=== PATIENT | female | born 1985 | race Caucasian/White ===

== ENCOUNTER 2018-05-12 17:35 | Emergency (ER) | payer MEDICAID ==
[~2018-05-12] VITALS: Ht 162.6 cm; Wt 84.0 kg
[~2018-05-12 17:35] MED LIST: CITA20TA19 PO; DIVA500T3 PO; HYDR-523 PO; LEVO1TAB24 PO; ONDA4TAB21 SL; RISP1 PO
[2018-05-12] MEDS ORDERED: SODIUM CHLORIDE 0.9% 1,000 ML IV ONE (18:05)
[2018-05-12] MEDS ORDERED: KETOROLAC 30MG/ML VIAL IV STA (18:05)
[2018-05-12] MEDS ORDERED: ONDANSETRON HCL 4MG/2ML VIAL IV STA (18:05)
[2018-05-12 18:33] LABS: BASOPHILS % 1.3 % (0.0-2.0); HEMATOCRIT. 36.9 % (36.0-48.0); HEMOGLOBIN. 12.4 g/dL (12.0-16.0); LYMPHOCYTES % 28.1 % (20.0-50.0); MEAN CORPUSCULAR HEMOGLOBIN 30.5 pg (28.0-32.0); MEAN CORPUSCULAR VOLUME 90.9 fL (81.0-99.0); MEAN PLATELET VOLUME 9.9 fl (7.4-10.4); MONOCYTES % 8.4 % (2.0-8.0); NEUTROPHILS % 60.2 % (40.0-76.0); PLATELET 240 x1000/uL (130-400); RED BLOOD CELL COUNT 4.06 mill/uL (4.2-5.4)
[2018-05-12 18:39] LABS: CHLORIDE 103 mEq/L (98-107)
[2018-05-12 18:40] LABS: INR 1.1; PROTHROMBIN TIME 11.4 sec (9.4-11.6)
[2018-05-12 18:41] LABS: HCG SCREEN NEGATIVE
[2018-05-12] MEDS ORDERED: MORPHINE SULFATE 4 MG/ML CPJ (NOT FOR IM USE) IV ONE ×2 (19:15→20:00)
[2018-05-12] MEDS ORDERED: POTASSIUM CHLORIDE 20MEQ TABLET SR PO ONE (19:15)
[2018-05-12 19:28] LABS: CLARITY URINE CLOUDY (CLEAR); COLOR URINE DARK YELLOW (YELLOW); KETONES URINE 2+ (NEGATIVE); LEUKOCYTE ESTERASE URINE NEGATIVE (NEGATIVE); NITRITE URINE NEGATIVE (NEGATIVE); OCCULT BLOOD URINE TRACE (NEGATIVE); PH URINE 5.5 (4.5-8.0); PROTEIN URINE 1+ (NEGATIVE); SPECIFIC GRAVITY URINE 1.031 (1.005-1.030)
[2018-05-12 19:37] LABS: *AMPHETAMINES SCREEN URINE NEGATIVE (NEGATIVE); *BARBITURATES SCREEN URINE NEGATIVE (NEGATIVE); *BENZODIAZEPINES SCREEN URINE NEGATIVE (NEGATIVE); *COCAINE SCREEN URINE NEGATIVE (NEGATIVE)
[2018-05-12 19:38] LABS: METHADONE URINE SCREEN NEGATIVE (NEGATIVE); PHENCYCLIDINE URINE SCREEN NEGATIVE (NEGATIVE)
[2018-05-12 19:47] LABS: CANNABINOID URINE SCREEN PRESUMTIVE POSITIVE (NEGATIVE); OPIATES URINE SCREEN PRESUMTIVE POSITIVE (NEGATIVE)
[2018-05-12] MEDS ORDERED: ONDANSETRON HCL 4MG/2ML VIAL IV ONE (20:00)
[2018-05-12 21:50] VITALS: BP 112/58
[2018-05-12] MEDS ORDERED: ACETAMINOPHEN 325MG TABLET PO ONE (22:15)
== END 2018-05-12 22:30 | disposition home or self-care (01) ==
LOC: ER 17:35
DX: R10.30 Lower abdominal pain, unspecified (principal); R11.2 Nausea with vomiting, unspecified; R19.7 Diarrhea, unspecified; R03.0 Elevated blood-pressure reading, without diagnosis of hypertension; Z98.890 Other specified postprocedural states
CPT/HCPCS: 36415; 74176; 80053; 80305; 81003; 81025; 83690; 84703; 85025; 85610; 96361; 96374; 96375; 96376; 99285; J1885; J2270; J2405; J7030; Z7610

== ENCOUNTER 2019-04-23 03:36 | Emergency (ER) | payer MEDICAID ==
[~2019-04-23] VITALS: Ht 162.6 cm; Wt 78.0 kg
[2019-04-23] MEDS ORDERED: ONDANSETRON HCL 4MG/2ML INJ IV ONE ×3 (05:30→10:00)
[2019-04-23] MEDS ORDERED: KETOROLAC 15MG/ML VIAL IV NR (05:30)
[2019-04-23] MEDS ORDERED: KETOROLAC 30MG/ML VIAL IV ONE (05:30)
[2019-04-23 05:33] LABS: BASOPHILS % 1.1 % (0.0-2.0); EOSINOPHILS % 3.4 % (0.0-5.0); HEMATOCRIT. 40.1 % (36.0-48.0); HEMOGLOBIN. 13.6 g/dL (12.0-16.0); LYMPHOCYTES % 26.7 % (20.0-50.0); MEAN CORPUSCULAR HEMOGLOBIN 31.5 pg (28.0-32.0); MEAN PLATELET VOLUME 9.5 fl (7.4-10.4); MONOCYTES % 6.7 % (2.0-8.0); NEUTROPHILS % 62.1 % (40.0-76.0); PLATELET 272 x1000/uL (130-400); RED BLOOD CELL COUNT 4.31 mill/uL (4.2-5.4); RED CELL DISTRIBUTION WIDTH 13.7 % (11.6-14.6)
[2019-04-23 05:36] LABS: CHLORIDE 110 mEq/L (98-107)
[2019-04-23 05:49] LABS: CLARITY URINE CLOUDY (CLEAR); COLOR URINE YELLOW (YELLOW); KETONES URINE TRACE (NEGATIVE); LEUKOCYTE ESTERASE URINE NEGATIVE (NEGATIVE); NITRITE URINE NEGATIVE (NEGATIVE); OCCULT BLOOD URINE NEGATIVE (NEGATIVE); PROTEIN URINE NEGATIVE (NEGATIVE); SPECIFIC GRAVITY URINE 1.023 (1.005-1.030); UROBILINOGEN URINE 0.2 E.U./dL (0.2-1.0)
[2019-04-23] MEDS ORDERED: MORPHINE SULFATE 4 MG/ML CPJ (NOT FOR IM USE) IV ONE (06:15)
[2019-04-23] MEDS ORDERED: HALOPERIDOL LACTATE 5MG/ML VIAL IM ONE (08:15)
[2019-04-23 10:05] VITALS: BP 125/83
== END 2019-04-23 10:08 | disposition home or self-care (01) ==
LOC: ER 03:36
DX: D25.9 Leiomyoma of uterus, unspecified (principal); R10.84 Generalized abdominal pain; F12.10 Cannabis abuse, uncomplicated; Z98.890 Other specified postprocedural states; Z79.899 Other long term (current) drug therapy; Z88.6 Allergy status to analgesic agent
CPT/HCPCS: 36415; 74176; 76830; 76856; 80053; 81003; 81025; 85025; 96374; 96375; 96376; 99284; J1630; J1885; J2270; J2405; Z7610

== ENCOUNTER 2019-04-23 10:18 | Emergency (ER) | payer MEDICAID ==
[~2019-04-23] VITALS: Ht 167.6 cm; Wt 80.0 kg
[2019-04-23 10:31] VITALS: BP 165/84
[2019-04-23] MEDS ORDERED: HALOPERIDOL LACTATE 5MG/ML VIAL IM ONE (11:00)
== END 2019-04-23 11:28 | disposition home or self-care (01) ==
LOC: ER 10:32
DX: R10.84 Generalized abdominal pain (principal); R11.2 Nausea with vomiting, unspecified; F12.10 Cannabis abuse, uncomplicated; Z79.899 Other long term (current) drug therapy; Z98.890 Other specified postprocedural states; Z88.6 Allergy status to analgesic agent
CPT/HCPCS: 99281

== ENCOUNTER 2020-07-17 08:22 | Day surgery (SDC) | payer MEDICAID ==
[~2020-07-17] VITALS: Ht 162.6 cm; Wt 66.0 kg
[2020-07-17] MEDS ORDERED: SODIUM CHLORIDE 0.9% 1,000 ML IV ONE (09:20)
[2020-07-17] MEDS ORDERED: ONDANSETRON HCL 4MG/2ML INJ IV ONE (09:30)
[2020-07-17] MEDS ORDERED: ACETAMINOPHEN 325MG TABLET PO PRN (09:30)
[2020-07-17 10:19] LABS: BASOPHILS % 0.7 % (0.0-2.0); HEMATOCRIT. 35.8 % (36.0-48.0); HEMOGLOBIN. 12.4 g/dL (12.0-16.0); LYMPHOCYTES % 25.5 % (20.0-50.0); MEAN CORPUSCULAR HEMOGLOBIN 32.4 pg (28.0-32.0); MEAN CORPUSCULAR VOLUME 94.1 fL (81.0-99.0); MEAN PLATELET VOLUME 9.1 fl (7.4-10.4); MONOCYTES % 6.9 % (2.0-8.0); NEUTROPHILS % 63.9 % (40.0-76.0); PLATELET 295 x1000/uL (130-400); RED BLOOD CELL COUNT 3.81 mill/uL (4.2-5.4); RED CELL DISTRIBUTION WIDTH 13.3 % (11.6-14.6)
[2020-07-17 10:22] LABS: CLARITY URINE CLOUDY (CLEAR); COLOR URINE DARK YELLOW (YELLOW); KETONES URINE 4+ (NEGATIVE); LEUKOCYTE ESTERASE URINE TRACE (NEGATIVE); NITRITE URINE NEGATIVE (NEGATIVE); OCCULT BLOOD URINE NEGATIVE (NEGATIVE); PH URINE 5.5 (4.5-8.0); PROTEIN URINE 1+ (NEGATIVE)
[2020-07-17 10:26] LABS: CHLORIDE 101 mEq/L (98-107)
[2020-07-17] MEDS ORDERED: ONDANSETRON HCL 4MG/2ML INJ IV STA (10:41)
[2020-07-17] MEDS ORDERED: MORPHINE SULFATE 4 MG/ML CPJ (NOT FOR IM USE) IV STA (10:41)
[2020-07-17 10:48] LABS: B-HCG QUANTITATIVE 138185 mIU/mL (<3)
[2020-07-17] MEDS ORDERED: POTASSIUM CHLORIDE 20MEQ TABLET SR PO ONE (11:30)
[2020-07-17] MEDS ORDERED: CEFTRIAXONE 1 G PREMIX 50 ML IV ONE (11:30)
[2020-07-17] MEDS ORDERED: MORPHINE SULFATE 2 MG/ML CPJ (NOT FOR IM USE) IV ONE (13:45)
[2020-07-17] MEDS ORDERED: DEXT 5% WATER + KCL 20MEQ/L 1,000 ML IV ONE (13:45)
[2020-07-17] MEDS ORDERED: FENTANYL CITRATE/PF 50MCG/ML 2ML VIAL ONE (14:47)
[2020-07-17] MEDS ORDERED: MIDAZOLAM HCL 2 MG/2 ML VIAL ONE (14:47)
[2020-07-17] MEDS ORDERED: PROPOFOL 200MG/20ML VIAL IV ONE (14:47)
[2020-07-17] MEDS ORDERED: ONDANSETRON HCL 4MG/2ML INJ IV PRN ×2 (15:00→15:15)
[2020-07-17] MEDS ORDERED: LABETALOL 5MG/ML SYR 20 MG/4 ML SYRINGE IV PRN ×2 (15:00→15:15)
[2020-07-17] MEDS ORDERED: MEPERIDINE HCL/PF 25MG/ML CPJ IV PRN ×2 (15:00→15:15)
[2020-07-17] MEDS ORDERED: HYDROMORPHONE HCL/PF 2MG/ML CPJ IV PRN ×2 (15:00→15:15)
[2020-07-17] MEDS ORDERED: OXYTOCIN 10 UNITS/ML 1ML ONE (15:16)
[2020-07-17] MEDS ORDERED: LIDOCAINE HCL/PF 1% 10 MG/ML 5ML VIAL ONE (15:16)
[2020-07-17] MEDS ORDERED: ONDANSETRON HCL 4MG/2ML INJ ONE (15:16)
[2020-07-17] MEDS ORDERED: DEXAMETHASONE 4MG/ML 1ML VIAL ONE (15:16)
[2020-07-17] MEDS: HYDROMORPHONE HCL/PF 2MG/ML CPJ IV PRN ×2 (16:05→16:23)
[2020-07-17 16:23] VITALS: BP 132/67
== END 2020-07-17 17:45 | disposition home or self-care (01) ==
LOC: ER 08:22 → OR 12:04 → ER 14:42 → CANBEDREQ 15:33 → OR 17:45
PROVIDERS: ATTEND Obstetrics & Gynecology
DX: O02.1 Missed abortion (principal); Z79.899 Other long term (current) drug therapy; Z98.890 Other specified postprocedural states; Z88.8 Allergy status to other drugs, medicaments and biological substances
CPT/HCPCS: 36415; 59820; 76801; 76817; 80053; 81003; 84702; 85025; 86850; 86900; 86901; 87086; 88305; 93005; J0696; J1100; J1170; J2250; J2270; J2405; J2704; J3010; J3490; J7030; J7060

== ENCOUNTER 2023-06-14 10:41 | Emergency (ER) | payer MEDICAID, OTHER ==
[~2023-06-14] VITALS: Ht 162.6 cm; Wt 64.0 kg
[2023-06-14 10:50] VITALS: O2SAT 98
[2023-06-14 11:51] LABS: BASOPHILS % 1.3 % (0.0-2.0); EOSINOPHILS % 4.5 % (0.0-5.0); HEMATOCRIT. 39.7 % (36.0-48.0); HEMOGLOBIN. 13.1 g/dL (12.0-16.0); MEAN CORPUSCULAR HEMOGLOBIN 31.8 pg (28.0-32.0); MEAN CORPUSCULAR HGB CONC 33.1 g/dL (31.0-37.0); MEAN CORPUSCULAR VOLUME 96.1 fL (81.0-99.0); MONOCYTES % 9.8 % (2.0-8.0); NEUTROPHILS % 37.4 % (40.0-76.0); RED BLOOD CELL COUNT 4.14 mill/uL (4.2-5.4); RED CELL DISTRIBUTION WIDTH 13.5 % (11.6-14.6); WHITE BLOOD COUNT 3.3 x1000/uL (4.5-11.0)
[2023-06-14 11:54] LABS: DIFFERENTIAL COMMENT 1
[2023-06-14 11:56] LABS: CHLORIDE 108 mEq/L (98-107); INDEX HEMOLYSI 2 (1-3); INDEX ICTERIC 1 (1-4); INDEX LIPEMIC 1 (1-3); POTASSIUM 3.6 mEq/L (3.5-5.1); SODIUM 135 mEq/L (136-145)
[2023-06-14 12:04] LABS: ALANINE AMINOTRANSFERASE 18 IU/L (13-61); ALBUMIN 3.9 g/dL (3.4-5.0); ASPARTATE AMINOTRANSFERASE 17 IU/L (15-37); BILIRUBIN TOTAL 0.2 mg/dL (0.1-1.0); CALCIUM 8.8 mg/dL (8.5-10.1); CARBON DIOXIDE 24 mEq/L (21-32); CREATININE 0.7 mg/dL (0.6-1.3); GLUCOSE 98 mg/dL (70-105); UREA NITROGEN BLOOD 10 mg/dL (7-21)
[2023-06-14 14:13] LABS: CLARITY URINE CLOUDY (CLEAR); COLOR URINE YELLOW (YELLOW); GLUCOSE URINE NEGATIVE (NEGATIVE); KETONES URINE 1+ (NEGATIVE); LEUKOCYTE ESTERASE URINE NEGATIVE (NEGATIVE); NITRITE URINE NEGATIVE (NEGATIVE); OCCULT BLOOD URINE NEGATIVE (NEGATIVE); PH URINE 5.5 (4.5-8.0); PROTEIN URINE 1+ (NEGATIVE); SPECIFIC GRAVITY URINE 1.026 (1.005-1.030)
[2023-06-14 14:33] LABS: BACTERIA URINE 2+; MUCUS URINE TRACE /lpf (< = 2+); SQUAMOUS EPITHELIAL CELL URINE 3+ /lpf (RARE/1+)
[2023-06-14 14:34] LABS: RBC URINE NONE SEEN /hpf (0-2); WBC URINE 0-2 /hpf (0-2)
[2023-06-14] MEDS ORDERED: ACETAMINOPHEN 325MG TABLET PO STA (17:27)
[2023-06-14] MEDS ORDERED: TOPUD MT (20:09)
[2023-06-14 20:33] VITALS: BP 132/87; PULSE 86; RESP 18; TEMP 98.7
== END 2023-06-14 20:36 | disposition home or self-care (01) ==
LOC: ER 11:35
DX: D25.9 Leiomyoma of uterus, unspecified (principal); F12.10 Cannabis abuse, uncomplicated; Z87.19 Personal history of other diseases of the digestive system; Z79.899 Other long term (current) drug therapy
CPT/HCPCS: 99285; 76705; 74176; 76830; 80053; 81003; 81025; 83690; 85025; 36415; 76856; 93005; C1893

== ENCOUNTER 2024-05-09 11:15 | Emergency (ER) | payer OTHER ==
[~2024-05-09] VITALS: Ht 170.2 cm; Wt 60.0 kg
[~2024-05-09 11:15] MED LIST changes: +TOPUD MT
[2024-05-09 11:18] VITALS: O2SAT 99
[2024-05-09 12:07] LABS: EOSINOPHILS % 3.5 % (0.0-5.0); HEMATOCRIT. 39.7 % (36.0-48.0); HEMOGLOBIN. 13.2 g/dL (12.0-16.0); LYMPHOCYTES % 35.4 % (20.0-50.0); MEAN CORPUSCULAR HGB CONC 33.2 g/dL (31.0-37.0); MEAN CORPUSCULAR VOLUME 96.4 fL (81.0-99.0); MEAN PLATELET VOLUME 9.3 fl (7.4-10.4); MONOCYTES % 7.4 % (2.0-8.0); NEUTROPHILS % 52.7 % (40.0-76.0); PLATELET 246 x1000/uL (130-400); RED BLOOD CELL COUNT 4.12 mill/uL (4.2-5.4); RED CELL DISTRIBUTION WIDTH 13.3 % (11.6-14.6)
[2024-05-09 12:16] LABS: CHLORIDE 108 mEq/L (98-107); POTASSIUM 3.7 mEq/L (3.5-5.1); SODIUM 140 mEq/L (136-145)
[2024-05-09 12:17] LABS: CALCIUM 9.6 mg/dL (8.7-10.4); CARBON DIOXIDE 26 mEq/L (21-32)
[2024-05-09 12:22] LABS: CREATININE 0.7 mg/dL (0.6-1.0); GLUCOSE 107 mg/dL (70-105); HCG SCREEN NEGATIVE; UREA NITROGEN BLOOD 10 mg/dL (9-23)
[2024-05-09 12:24] LABS: ALANINE AMINOTRANSFERASE 13 IU/L (10-49); ALBUMIN 4.8 g/dL (3.2-4.8); ASPARTATE AMINOTRANSFERASE 19 IU/L (<34); BILIRUBIN TOTAL 0.4 mg/dL (0.1-1.0); PROTEIN TOTAL 7.8 g/dL (6.0-8.3)
[2024-05-09] MEDS: SODIUM CHLORIDE 0.9% 1,000 ML IV ONE (12:32)
[2024-05-09] MEDS: MORPHINE SULFATE 4 MG/ML INJ (FOR IV/IM USE) IV STA (12:34)
[2024-05-09] MEDS: ONDANSETRON HCL 4MG/2ML INJ IV STA (12:35)
[2024-05-09] MEDS ORDERED: ONDANSETRON HCL 4MG/2ML INJ IV ONE ×2 (13:30→18:00)
[2024-05-09] MEDS ORDERED: NALOXONE HCL 0.4MG/ML VIAL IV PRN (15:30)
[2024-05-09] MEDS ORDERED: HYDROCODONE/ACETAMINOPHEN 5/325MG TABLET PO PRN (15:30)
[2024-05-09] MEDS: KETOROLAC 30MG/ML VIAL IV NR (16:14)
[2024-05-09] MEDS: ONDANSETRON HCL 4MG/2ML INJ IV NR ×2 (16:15→18:14)
[2024-05-09] MEDS ORDERED: ONDANSETRON HCL 4MG/2ML INJ IV PRN (17:45)
[2024-05-09] MEDS: OXYCODONE HCL/ACETAMINOPHEN 5/325MG TABLET PO NR (18:14)
[2024-05-09] MEDS: DEXT 5%/0.45% NACL 1000ML 1,000 ML IV SCH (19:05)
[2024-05-09 20:09] VITALS: BP 132/85; PULSE 72; RESP 18; TEMP 98.6
== END 2024-05-09 20:19 | disposition left against medical advice (07) ==
LOC: ER 11:15 → EDBEDREQTM 14:18 → EDBEDREQ 14:18 → CANBEDREQ 20:13 → ER 20:19
DX: R10.9 Unspecified abdominal pain (principal); R19.7 Diarrhea, unspecified; R11.2 Nausea with vomiting, unspecified; F12.10 Cannabis abuse, uncomplicated; Z79.899 Other long term (current) drug therapy
CPT/HCPCS: 99285; 74176; 96374; 76830; 76856; 96375; 96361; 80053; 84703; 85025; 36415; 96376; J1885; J2405; J2270; J7030

== ENCOUNTER 2024-05-23 09:13 | Emergency (ER) | payer OTHER ==
[~2024-05-23] VITALS: Ht 167.6 cm; Wt 70.0 kg
[2024-05-23 09:17] VITALS: O2SAT 98
[2024-05-23] MEDS: ONDANSETRON HCL 4MG/2ML INJ IV STA ×2 (09:41→11:42)
[2024-05-23] MEDS: MORPHINE SULFATE 4 MG/ML INJ (FOR IV/IM USE) IV STA (09:41)
[2024-05-23 09:45] LABS: BASOPHILS % 0.9 % (0.0-2.0); HEMATOCRIT. 40.2 % (36.0-48.0); HEMOGLOBIN. 13.3 g/dL (12.0-16.0); LYMPHOCYTES % 22.7 % (20.0-50.0); MEAN CORPUSCULAR HEMOGLOBIN 32.1 pg (28.0-32.0); MEAN CORPUSCULAR HGB CONC 33.2 g/dL (31.0-37.0); MEAN CORPUSCULAR VOLUME 96.7 fL (81.0-99.0); MEAN PLATELET VOLUME 9.5 fl (7.4-10.4); MONOCYTES % 4.2 % (2.0-8.0); NEUTROPHILS % 71.2 % (40.0-76.0); PLATELET 270 x1000/uL (130-400); RED BLOOD CELL COUNT 4.16 mill/uL (4.2-5.4); RED CELL DISTRIBUTION WIDTH 13.3 % (11.6-14.6); WHITE BLOOD COUNT 4.7 x1000/uL (4.5-11.0)
[2024-05-23 09:50] LABS: CHLORIDE 106 mEq/L (98-107); POTASSIUM 4.2 mEq/L (3.5-5.1); SODIUM 139 mEq/L (136-145)
[2024-05-23 09:51] LABS: CARBON DIOXIDE 24 mEq/L (21-32)
[2024-05-23 09:52] LABS: CALCIUM 9.6 mg/dL (8.7-10.4)
[2024-05-23 09:56] LABS: CREATININE 0.7 mg/dL (0.6-1.0); GLUCOSE 110 mg/dL (70-105)
[2024-05-23 09:57] LABS: UREA NITROGEN BLOOD 9 mg/dL (9-23)
[2024-05-23 10:04] LABS: PROTHROMBIN TIME 10.8 sec (9.6-11.0)
[2024-05-23] MEDS: MORPHINE SULFATE 4 MG/ML INJ (FOR IV/IM USE) IV ONE (11:38)
[2024-05-23] MEDS: SODIUM CHLORIDE 0.9% 1,000 ML IV ONE (11:42)
[2024-05-23 13:35] VITALS: BP 110/82; PULSE 92; RESP 14; TEMP 98.4
== END 2024-05-23 15:46 | disposition left against medical advice (07) ==
LOC: ER 09:13 → EDBEDREQSVC 13:24 → EDBEDREQTM 13:24 → EDBEDREQ 13:24 → ER 15:46
DX: R10.9 Unspecified abdominal pain (principal); F12.10 Cannabis abuse, uncomplicated; Z79.899 Other long term (current) drug therapy
CPT/HCPCS: 80048; 83690; 85025; 85610; 36415; 96374; 96375; 96376; 99284; J2405; J2270; J7030; Z7610

== ENCOUNTER 2024-05-25 13:52 | Emergency (ER) | payer OTHER ==
[~2024-05-25] VITALS: Ht 167.6 cm; Wt 75.0 kg
[2024-05-25 13:56] VITALS: BP 117/63; PULSE 80; RESP 16; O2SAT 98
[2024-05-25 14:32] LABS: BASOPHILS % 1.3 % (0.0-2.0); EOSINOPHILS % 4.8 % (0.0-5.0); HEMATOCRIT. 38.5 % (36.0-48.0); HEMOGLOBIN. 13.1 g/dL (12.0-16.0); LYMPHOCYTES % 31.7 % (20.0-50.0); MEAN CORPUSCULAR HEMOGLOBIN 32.7 pg (28.0-32.0); MEAN CORPUSCULAR HGB CONC 34.1 g/dL (31.0-37.0); MEAN CORPUSCULAR VOLUME 95.9 fL (81.0-99.0); MEAN PLATELET VOLUME 9.4 fl (7.4-10.4); MONOCYTES % 6.7 % (2.0-8.0); NEUTROPHILS % 55.5 % (40.0-76.0); PLATELET 244 x1000/uL (130-400); RED BLOOD CELL COUNT 4.01 mill/uL (4.2-5.4); RED CELL DISTRIBUTION WIDTH 13.2 % (11.6-14.6); WHITE BLOOD COUNT 5.4 x1000/uL (4.5-11.0)
[2024-05-25 14:39] LABS: CHLORIDE 106 mEq/L (98-107); POTASSIUM 3.5 mEq/L (3.5-5.1); SODIUM 141 mEq/L (136-145)
[2024-05-25 14:40] LABS: CALCIUM 9.4 mg/dL (8.7-10.4); CARBON DIOXIDE 27 mEq/L (21-32)
[2024-05-25 14:45] LABS: CREATININE 0.6 mg/dL (0.6-1.0); GLUCOSE 100 mg/dL (70-105); UREA NITROGEN BLOOD 9 mg/dL (9-23)
[2024-05-25 14:53] LABS: HCG SCREEN NEGATIVE
[2024-05-25 15:52] LABS: CLARITY URINE CLOUDY (CLEAR); COLOR URINE DARK YELLOW (YELLOW); GLUCOSE URINE NEGATIVE (NEGATIVE); KETONES URINE 3+ (NEGATIVE); LEUKOCYTE ESTERASE URINE TRACE (NEGATIVE); NITRITE URINE NEGATIVE (NEGATIVE); OCCULT BLOOD URINE NEGATIVE (NEGATIVE); PH URINE 7.5 (4.5-8.0); PROTEIN URINE 1+ (NEGATIVE)
[2024-05-25 16:08] LABS: BACTERIA URINE 3+; SQUAMOUS EPITHELIAL CELL URINE 3+ /lpf (RARE/1+)
[2024-05-25 16:09] LABS: RBC URINE 0-2 /hpf (0-2); WBC URINE 0-2 /hpf (0-2)
[2024-05-25 16:45] LABS: *AMPHETAMINES SCREEN URINE NEGATIVE (NEGATIVE); *BARBITURATES SCREEN URINE NEGATIVE (NEGATIVE); *BENZODIAZEPINES SCREEN URINE NEGATIVE (NEGATIVE); *COCAINE SCREEN URINE NEGATIVE (NEGATIVE)
[2024-05-25 16:46] LABS: CANNABINOID URINE SCREEN PRESUMPTIVE POSITIVE (NEGATIVE); ECSTASY MDMA SCREEN URINE NEGATIVE (NEGATIVE); METHADONE URINE SCREEN NEGATIVE (NEGATIVE); OPIATES URINE SCREEN PRESUMPTIVE POSITIVE (NEGATIVE); PHENCYCLIDINE URINE SCREEN NEGATIVE (NEGATIVE)
== END 2024-05-25 17:51 | disposition left against medical advice (07) ==
LOC: ER 13:52
DX: R10.9 Unspecified abdominal pain (principal); F19.20 Other psychoactive substance dependence, uncomplicated; Z76.5 Malingerer [conscious simulation]
CPT/HCPCS: 36415; 80048; 80305; 81003; 81025; 84703; 85025; 99283

== ENCOUNTER 2025-02-28 10:55 | Emergency (ER) | payer OTHER ==
[~2025-02-28] VITALS: Ht 167.6 cm; Wt 64.0 kg
[2025-02-28 11:07] VITALS: BP 127/79; PULSE 80; RESP 16; TEMP 37.2; O2SAT 98
[2025-02-28 11:40] LABS: BASOPHILS % 1.2 % (0.0-2.0); DIFFERENTIAL COMMENT 0; EOSINOPHILS % 5.3 % (0.0-5.0); HEMATOCRIT. 37.3 % (36.0-48.0); HEMOGLOBIN. 12.5 g/dL (12.0-16.0); LYMPHOCYTES % 27.1 % (20.0-50.0); MEAN CORPUSCULAR HEMOGLOBIN 31.9 pg (28.0-32.0); MEAN CORPUSCULAR HGB CONC 33.5 g/dL (31.0-37.0); MEAN CORPUSCULAR VOLUME 95.2 fL (81.0-99.0); MEAN PLATELET VOLUME 9.3 fl (7.4-10.4); MONOCYTES % 5.1 % (2.0-8.0); NEUTROPHILS % 61.3 % (40.0-76.0); PLATELET 236 x1000/uL (130-400); RED BLOOD CELL COUNT 3.92 mill/uL (4.2-5.4); RED CELL DISTRIBUTION WIDTH 13.6 % (11.6-14.6); WHITE BLOOD COUNT 4.9 x1000/uL (4.5-11.0)
[2025-02-28 11:48] LABS: CHLORIDE 107 mEq/L (98-107); POTASSIUM 3.7 mEq/L (3.5-5.1); SODIUM 140 mEq/L (136-145)
[2025-02-28 11:49] LABS: CARBON DIOXIDE 26 mEq/L (21-32)
[2025-02-28 11:50] LABS: CALCIUM 9.9 mg/dL (8.7-10.4)
[2025-02-28 11:54] LABS: CREATININE 0.6 mg/dL (0.6-1.0); GLUCOSE 105 mg/dL (70-105); UREA NITROGEN BLOOD 11 mg/dL (9-23)
[2025-02-28] MEDS: ACETAMINOPHEN 500MG TABLET PO ONE (12:56)
[2025-02-28] MEDS: ONDANSETRON 4MG ODT PO ONE (12:56)
[2025-02-28] MEDS ORDERED: KETOROLAC 30MG/ML VIAL IM STA (13:00)
[2025-02-28] MEDS ORDERED: DIPHENHYDRAMINE 25MG CAPSULE PO ONE (13:00)
[2025-02-28 13:22] LABS: CLARITY URINE CLOUDY (CLEAR); COLOR URINE YELLOW (YELLOW); GLUCOSE URINE NEGATIVE (NEGATIVE); KETONES URINE 2+ (NEGATIVE); LEUKOCYTE ESTERASE URINE NEGATIVE (NEGATIVE); NITRITE URINE NEGATIVE (NEGATIVE); OCCULT BLOOD URINE NEGATIVE (NEGATIVE); PH URINE 5.5 (4.5-8.0); PROTEIN URINE 1+ (NEGATIVE); SPECIFIC GRAVITY URINE 1.028 (1.005-1.030)
[2025-02-28 13:33] LABS: HCG SCREEN NEGATIVE
[2025-02-28 13:37] LABS: BACTERIA URINE 2+; MUCUS URINE TRACE /lpf (< = 2+); SQUAMOUS EPITHELIAL CELL URINE 3+ /lpf (RARE/1+)
[2025-02-28 13:39] LABS: WBC URINE 0-2 /hpf (0-2)
[2025-02-28 13:40] LABS: RBC URINE NONE SEEN /hpf (0-2)
== END 2025-02-28 13:26 | disposition left against medical advice (07) ==
LOC: ER 10:55
DX: R10.32 Left lower quadrant pain (principal); Z87.442 Personal history of urinary calculi; Z79.899 Other long term (current) drug therapy; Z88.6 Allergy status to analgesic agent
CPT/HCPCS: 99283; 80048; 81003; 81025; 84703; 83605; 83690; 85025; 36415; Q0162